=== PATIENT | male | born 1965 | race Caucasian/White ===

== ENCOUNTER 2020-08-21 11:20 | Outpatient (CLI) | payer OTHER, SELFPAY ==
--- NOTE | 2020-08-21 11:39 | XRR_ITS ---
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 Views: 4 or 5 views. COMPARISON: No relevant prior studies available. FINDINGS: Bones/joints: There is a fracture of the superior endplate of the L1 vertebral body of indeterminate age. Otherwise no acute fracture. Normal alignment. Soft tissues: Unremarkable. XR/XR lumbar spine min 4V [id number] IMPRESSION: 1. A compression fracture superior endplate L1 vertebral body 2. Otherwise negative lumbar spine x-ray examin or are are a are are ation
== END 2020-08-21 11:21 | disposition home or self-care (01) ==
PROVIDERS: PCP Nurse Practitioner Family; Visit Provider Nurse Practitioner Family
DX: M47.816 Spondylosis without myelopathy or radiculopathy, lumbar region (principal); M46.1 Sacroiliitis, not elsewhere classified; S32.018A Other fracture of first lumbar vertebra, initial encounter for closed fracture; X58.XXXA Exposure to other specified factors, initial encounter
CPT/HCPCS: 72110

== ENCOUNTER → 2020-08-28 08:21 | Outpatient (BNVA) | payer OTHER, SELFPAY | PROVIDERS: PCP Nurse Practitioner Family; Referring Provider Nurse Practitioner Family; Visit Provider Anesthesiology Pain Medicine | DX: M54.9 Dorsalgia, unspecified (principal); M47.816 Spondylosis without myelopathy or radiculopathy, lumbar region; M51.16 Intervertebral disc disorders with radiculopathy, lumbar region; Z79.891 Long term (current) use of opiate analgesic | CPT/HCPCS: 99204 ==

== ENCOUNTER → 2020-09-25 08:57 | Outpatient (BNVA) | payer OTHER, SELFPAY | PROVIDERS: PCP Nurse Practitioner Family; Visit Provider Anesthesiology Pain Medicine | DX: M54.9 Dorsalgia, unspecified (principal); M47.816 Spondylosis without myelopathy or radiculopathy, lumbar region; M51.16 Intervertebral disc disorders with radiculopathy, lumbar region; M46.1 Sacroiliitis, not elsewhere classified; M70.62 Trochanteric bursitis, left hip; Y93.9 Activity, unspecified | CPT/HCPCS: 99214 ==

== ENCOUNTER → 2020-10-04 13:13 | Outpatient (BNVA) | payer OTHER, SELFPAY | PROVIDERS: PCP Nurse Practitioner Family; Visit Provider Anesthesiology Pain Medicine | DX: G89.29 Other chronic pain (principal); M70.62 Trochanteric bursitis, left hip; M53.3 Sacrococcygeal disorders, not elsewhere classified; M54.9 Dorsalgia, unspecified; Y93.9 Activity, unspecified | CPT/HCPCS: 20610; G0260; J1030; J3490 ==

== ENCOUNTER 2023-05-14 13:08 | Outpatient (CLI) | payer OTHER, SELFPAY ==
--- NOTE | 2023-05-14 13:45 | MR_ITS ---
WS: [id number] MRI LUMBAR SPINE NONCONTRAST TECHNIQUE: Sagittal T1, T2 and STIR imaging. Axial T1 and T2 imaging. CLINICAL INFORMATION: COMPARISON: None. FINDINGS: Mild lumbar curve. No acute compression. Mild chronic anterior wedging at L1. L1-L2: Tiny tiny shallow LEFT subarticular protrusion. Slight narrowing of the LEFT subarticular rece ss. Mild facet arthropathy. Mild LEFT foraminal narrowing. L2-L3: Mild annular bulging. Slight narrowing RIGHT subarticular recess. Mild facet arthropathy. Spin al canal and foramen are patent. L3-L4: Slight anterolisthesis L3 on L4. Mild annular bulging with slight narrowing of the subarticula r recess bilaterally. Mild central canal stenosis. Mild to moderate facet arthropathy. Mild bilateral foraminal narrowing. L4-L5: Mild annular bulging. Slight impingement of the LEFT greater than RIGHT subarticular recess wi th mild central canal stenosis. Moderate facet arthropathy. LEFT foraminal protrusion with mild LEFT foraminal narrowing. Slight RIGHT foraminal narrowing. L5-S1: Mild annular bulging with slight effacement of the ventral thecal sac. Moderate to advanced fa cet arthropathy. Spinal canal and foramen are patent. Moderate facet arthropathy. Visualized pelvic bony structures: Normal. Paravertebral soft tissues: Normal. IMPRESSION: 1. Mild lumbar curve. No acute compression. Mild chronic anterior wedging at L1. 2. Tiny LEFT subarticular protrusion L1-2 slightly impinges the traversing LEFT L2 nerve root in the subarticular recess. Mild LEFT foraminal narrowing. 3. Slight narrowing of the RIGHT L2-3 subarticular recess. 4. Annular bulging L3-4 with mild central canal stenosis and slight impingement subarticular recess bilaterally. 5. Mild central canal stenosis L4-5 impinges the traversing LEFT L5 nerve root in the subarticular r ecess 6. Small LEFT foraminal protrusion L4-5 with mild LEFT foraminal narrowing. 7. Moderate facet arthropathy L4-L5 and L5-S1.
== END 2023-05-14 13:09 | disposition home or self-care (01) ==
LOC: RAD 13:09
PROVIDERS: PCP Nurse Practitioner Family; Visit Provider Anesthesiology Pain Medicine
DX: M51.16 Intervertebral disc disorders with radiculopathy, lumbar region (principal); M48.56XA Collapsed vertebra, not elsewhere classified, lumbar region, initial encounter for fracture; M48.061 Spinal stenosis, lumbar region without neurogenic claudication; M47.817 Spondylosis without myelopathy or radiculopathy, lumbosacral region
CPT/HCPCS: 72148

== ENCOUNTER 2023-12-01 11:22 | Outpatient (CLI) | payer OTHER, SELFPAY ==
--- NOTE | 2023-12-01 11:38 | XRR_ITS ---
PROCEDURE INFORMATION: Exam: XR Lumbosacral Spine Exam date and time: 12/01/2023 11:50 AM Age: 58 years old Clinical indication: Low back pain; Additional info: Spondylolisthesis, lumbar region, please comment on presence or absence of spinal instability TECHNIQUE: Imaging protocol: Radiologic exam of the lumbosacral spine. Views: 2 or 3 views. COMPARISON: MR lumbar spine wo con* [id number] 05/14/2023 1:31 PM FINDINGS: Bones/joints: Chronic mild anterior wedging at L1. Spinal alignment is intact. No acute fracture. No dynamic instability with flexion/extension. Multilevel bilateral facet arthropathy. Moderate intervertebral disc space height loss at L4-L5 and L5-S1. Soft tissues: Unremarkable. XR/XR lumbar spine f/e only [id number] IMPRESSION: 1. No acute osseous findings. 2. Chronic anterior wedging at L1. 3. Moderate degenerative disc disease at L4-L5 and L5-S1. 4. Multilevel bilateral facet arthropathy. 5. No dynamic instability with flexion/extension.
== END 2023-12-01 11:23 | disposition home or self-care (01) ==
LOC: RAD 11:30
PROVIDERS: PCP Nurse Practitioner Family; Visit Provider Nurse Practitioner
DX: M43.16 Spondylolisthesis, lumbar region (principal); S32.010A Wedge compression fracture of first lumbar vertebra, initial encounter for closed fracture; M51.36 Other intervertebral disc degeneration, lumbar region; M51.37 Other intervertebral disc degeneration, lumbosacral region; M12.9 Arthropathy, unspecified
CPT/HCPCS: 72120

== ENCOUNTER 2024-06-25 08:48 | Outpatient (CLI) | payer OTHER, SELFPAY ==
--- NOTE | 2024-06-25 08:52 | CT_ITS ---
WS: [id number] LDCT LUNG CANCER SCREENING TECHNIQUE: Noncontrast CT of the chest with coronal and sagittal reformatted images. CLINICAL INFORMATION: NICOTINE DEPENDENCE, CIGARETTES COMPARISON: None. DLP: 89.87 mGy.cm DIvol: Mean CTDIvol: 1.80 (mGy) All CT scans at [facility] use at least one of these dose optimization techniques: automated exposure control; mA and/or kV adjustment per patient size (includes targeted exams where dose is matched to clinical indication); or iterative reconstruction. FINDINGS: No suspicious pulmonary parenchymal abnormalities. Normal caliber thoracic aorta. Coronary calcification. No mediastinal or hilar lymphadenopathy. No axillary lymphadenopathy. Adrenal glands are normal. Small esophageal hiatal hernia. Moderate thoracic kyphosis. Moderate cellulitic changes thoracic spine. CT/CT lung screening [id number] IMPRESSION: LUNG-RADS: 1-Negative FOLLOW UP: 12 Month: Continue annual screening with LDCT
== END 2024-06-25 08:49 | disposition home or self-care (01) ==
PROVIDERS: PCP Nurse Practitioner Family; Visit Provider Nurse Practitioner Family
DX: Z12.2 Encounter for screening for malignant neoplasm of respiratory organs (principal); F17.210 Nicotine dependence, cigarettes, uncomplicated; I25.10 Atherosclerotic heart disease of native coronary artery without angina pectoris; K44.9 Diaphragmatic hernia without obstruction or gangrene; M40.294 Other kyphosis, thoracic region; R93.7 Abnormal findings on diagnostic imaging of other parts of musculoskeletal system
CPT/HCPCS: 71271